=== PATIENT | female | born 1980 | race Two or more races ===

== ENCOUNTER 2024-09-02 07:11 | Emergency (ER) | payer OTHER ==
[2024-09-02 08:28] LABS: #Basophils 0.02 10x3/uL (0.0-0.2); #Eosinphils 0.03 10x3/uL (0.0-0.5); #Monocytes 0.59 10x3/uL (0.0-1.1); #Neutrophils 2.01 10x3/uL (1.5-8.4); %Basophils 0.5 % (0.0-2.0); %Eosinophils 0.8 % (0.0-6.0); %Lymphocytes 30.2 % (18.0-47.0); %Monocytes 15.5 % (0.0-10.0); %Neutrophils 52.7 % (40.0-75.0); Hematocrit 38.4 % (34.9-44.5); Hemoglobin 13.3 g/dL (12.0-15.5); Mean Corpuscular HGB CONC 34.6 g/dL (32.0-36.0); Mean Corpuscular Volume 92.5 fL (81.6-98.3); Mean Platelet Volume 8.4 fL (7.4-10.4); Platelet Count 269 10x3/uL (150-450); RBC Distribution Width 12.8 % (11.5-14.5); Red Blood Cell (RBC) Count 4.15 10x6/uL (3.90-5.03); White Blood Cell (WBC) Count 3.8 10x3/uL (3.5-10.5)
[2024-09-02 08:55] LABS: ALT (SGPT) 13 U/L (8-55); AST (SGOT) 17 U/L (5-34); Alkaline Phosphatase 60 U/L (40-110); Anion Gap 14 mmol/L (10-20); BUN (Urea Nitrogen) 8 mg/dL (7.0-18.7); Bilirubin, Total 0.5 mg/dL (0.2-1.2); Calc. Creatinine Clearance 0 mL/min (70-130); Calcium 9.3 mg/dL (7.8-10.44); Carbon Dioxide 20 mmol/L (22-29); Chloride 107 mmol/L (98-107); Estimated GFR 98; Globulin 2.9 g/dL (2.4-3.5); Glucose 93 mg/dL (70-105); Lipase 29 U/L (8-78); Potassium 3.9 mmol/L (3.5-5.1); Protein, Total 6.9 g/dL (6.0-8.3); Sodium 137 mmol/L (136-145)
[2024-09-02] MEDS ORDERED: Aspirin Chewable 81 MG TAB ONE (08:57)
[2024-09-02 08:58] LABS: Troponin I Less than 0.010 ng/mL (< 0.028)
[2024-09-02 11:02] LABS: Troponin I Less than 0.010 ng/mL (< 0.028)
[2024-09-02] MEDS ORDERED: Iopamidol-370 76% 500 ML MDV (1 ML CHARGE) ONE (15:13)
== END 2024-09-02 11:58 | disposition home or self-care (01) ==
LOC: CSHERS 07:11
DX: R00.2 Palpitations (principal); R07.9 Chest pain, unspecified; G43.909 Migraine, unspecified, not intractable, without status migrainosus; Z55.6 Problems related to health literacy
CPT/HCPCS: 36415; 70496; 70498; 71045; 80053; 83690; 84443; 84484; 85025; 93005; Q9967